=== PATIENT | female | born 1960 | race Caucasian/White ===

== ENCOUNTER 2016-11-28 16:59 | Inpatient (IN) | payer OTHER ==
[~2016-11-28] VITALS: Ht 170.2 cm; Wt 76.0 kg
[~2016-11-28 16:59] MED LIST: AMBIEN10 MG PO; CIPRO250 MG PO; CYM60 PO; DEP250 PO; LEVOTHYROXIN0.025 MG PO; LORAZEPAM1 MG PO; MIRTAZAPINE30 MG PO; PROPRANOLOL HCL40 MG PO; SERO100 PO; TRAZODONE100 M1 PO
[2016-11-28 18:47] LABS: BASOPHIL % 0.4 % (0-2); PLATELET COUNT 316 x10^3mcL (130-400); RED CELL DISTRIBUTION WIDTH 12.3 % (11.5-14.5)
[2016-11-28 18:53] LABS: CARBON DIOXIDE 29.2 mmol/L (21-32); CHLORIDE SERUM 106 mmol/L (98-107); CREATININE SERUM 0.7 mg/dL (0.6-1.0); GFR1 > 60 mL/min; GLUCOSE SERUM 95 mg/dL (74-106); POTASSIUM SERUM 4.1 mmol/L (3.5-5.1); SODIUM SERUM 142 mmol/L (136-145)
[2016-11-28 18:57] LABS: ALBUMIN 3.8 g/dL (3.4-5.0); ALKALINE PHOSPHATASE 57 U/L (46-116); ALT/SGPT 25 U/L (14-59); AST/SGOT 21 U/L (15-37); BILIRUBIN TOTAL 0.39 mg/dL (0.20-1.00); TOTAL PROTEIN, SERUM 6.8 g/dL (6.4-8.2)
[2016-11-28] MEDS ORDERED: CYMBALTA60 M1 PO (19:06)
[2016-11-28] MEDS ORDERED: NOR10T PO (19:07)
[2016-11-28] MEDS ORDERED: GABAPENTIN800 M1 PO (19:07)
[2016-11-28] MEDS ORDERED: SYNTHROID0.05 MG PO (19:09)
[2016-11-28 20:27] LABS: T3 TOTAL 1.43 ng/mL
[2016-11-28 20:29] LABS: CHOLESTEROL/HDL RATIO 2.6; MAGNESIUM 1.8 mg/dL (1.8-2.4)
[2016-11-28 20:34] VITALS: BP 152/93
[2016-11-28 20:39] LABS: FREE THYROXINE INDEX 2.3 ug/dL (1.4-4.5); T4(THYROXINE) 7.5 ug/dL (4.7-13.3)
[2016-11-28 20:41] LABS: FREE T4 0.83 ng/dL (0.76-1.46)
[2016-11-28 21:09] LABS: PHOSPHOROUS 4.4 mg/dL (2.5-4.9)
[2016-11-29 03:08] LABS: PLATELET COUNT 296 x10^3mcL (130-400)
[2016-11-29 03:10] LABS: BASOPHIL % 6.3 % (0-2); RED CELL DISTRIBUTION WIDTH 11.1 % (11.5-14.5)
[2016-11-29 03:14] LABS: CALCIUM 8.7 mg/dL (8.5-10.1); CARBON DIOXIDE 30.3 mmol/L (21-32); CHLORIDE SERUM 108 mmol/L (98-107); CREATININE SERUM 0.8 mg/dL (0.6-1.0); GFR1 > 60 mL/min; GLUCOSE SERUM 104 mg/dL (74-106); MAGNESIUM 1.9 mg/dL (1.8-2.4); PHOSPHOROUS 4.1 mg/dL (2.5-4.9); POTASSIUM SERUM 3.6 mmol/L (3.5-5.1); SODIUM SERUM 143 mmol/L (136-145)
[2016-11-29 03:39] LABS: UA SPECIFIC GRAVITY 1.015 (1.005-1.035); microscopic required? YES; urine erythrocyte NEGATIVE (NEGATIVE)
[2016-11-29 04:24] LABS: AMPHETAMINE QUAL UR NONE DETECTED (NEG <=1000)
[2016-11-29 06:01] VITALS: BP 124/73
[2016-11-29 09:29] VITALS: BP 128/68
[2016-11-29 15:12] VITALS: BP 105/65
[2016-11-29 17:33] VITALS: BP 124/71
[2016-11-29 20:38] VITALS: BP 146/77
[2016-11-30 05:45] VITALS: BP 129/75
[2016-11-30 06:48] LABS: BASOPHIL % 0.4 % (0-2); PLATELET COUNT 286 x10^3mcL (130-400); RED CELL DISTRIBUTION WIDTH 12.6 % (11.5-14.5)
[2016-11-30 07:18] LABS: CALCIUM 8.6 mg/dL (8.5-10.1)
[2016-11-30 07:45] LABS: CARBON DIOXIDE 29.5 mmol/L (21-32); CHLORIDE SERUM 107 mmol/L (98-107); CREATININE SERUM 0.7 mg/dL (0.6-1.0); GFR1 > 60 mL/min; GLUCOSE SERUM 93 mg/dL (74-106); POTASSIUM SERUM 4.5 mmol/L (3.5-5.1); SODIUM SERUM 143 mmol/L (136-145)
[2016-11-30 09:25] VITALS: BP 127/77
[2016-11-30] MEDS ORDERED: LAC PO (10:57)
[2016-11-30] MEDS ORDERED: CIPRO250 MG PO (10:57)
[2016-11-30 11:06] VITALS: BP 127/77
== END 2016-11-30 13:18 | disposition home or self-care (01) | DRG 392 ==
LOC: ED 16:59 → DU 19:12
PROVIDERS: Emergency Medicine; ADMIT Family Medicine
DX: K21.9 Gastro-esophageal reflux disease without esophagitis (principal); R45.851 Suicidal ideations; F33.2 Major depressive disorder, recurrent severe without psychotic features; E03.9 Hypothyroidism, unspecified; M25.511 Pain in right shoulder; I16.0 Hypertensive urgency; E78.5 Hyperlipidemia, unspecified; F41.9 Anxiety disorder, unspecified; G57.62 Lesion of plantar nerve, left lower limb; Z68.26 Body mass index [BMI] 26.0-26.9, adult; F17.210 Nicotine dependence, cigarettes, uncomplicated
CPT/HCPCS: 80307; 83880; 84439; G0480; J0696; J2060; J2270; J7030; Q0092

== ENCOUNTER 2018-06-01 12:14 | Emergency (ER) | payer OTHER ==
[~2018-06-01] VITALS: Ht 170.2 cm; Wt 82.7 kg
[~2018-06-01 12:14] MED LIST changes: +CYMBALTA60 M1 PO; +GABAPENTIN800 M1 PO; +LAC PO; +NOR10T PO; +SYNTHROID0.05 MG PO
[2018-06-01 12:20] VITALS: BP 148/90; Ht 170.2 cm; Wt 82.7 kg
== END 2018-06-01 14:33 | disposition home or self-care (01) ==
LOC: ED 12:14
DX: S61.411A Laceration without foreign body of right hand, initial encounter (principal); F31.9 Bipolar disorder, unspecified; Z98.890 Other specified postprocedural states; W25.XXXA Contact with sharp glass, initial encounter; Y93.89 Activity, other specified; Y92.090 Kitchen in other non-institutional residence as the place of occurrence of the external cause; Y99.8 Other external cause status
CPT/HCPCS: 90715; J2001

== ENCOUNTER 2018-06-12 21:30 | Emergency (ER) | payer OTHER ==
[~2018-06-12] VITALS: Ht 170.2 cm; Wt 85.7 kg
[2018-06-12 21:36] VITALS: Ht 170.2 cm; Wt 85.7 kg
[2018-06-12 22:26] VITALS: BP 115/76
== END 2018-06-12 21:52 | disposition home or self-care (01) ==
LOC: ED 21:30
DX: S61.411D Laceration without foreign body of right hand, subsequent encounter (principal); F31.9 Bipolar disorder, unspecified; X58.XXXD Exposure to other specified factors, subsequent encounter

== ENCOUNTER 2019-01-18 07:36 | Day surgery (SDC) | payer OTHER ==
[~2019-01-18] VITALS: Ht 170.2 cm; Wt 72.6 kg
[2019-01-18 08:23] VITALS: BP 123/84
[2019-01-18 15:17] VITALS: BP 114/75
== END 2019-01-18 11:20 | disposition home or self-care (01) ==
LOC: GI 07:36 → OR 10:00 → GI 10:00
DX: K52.9 Noninfective gastroenteritis and colitis, unspecified (principal); K64.8 Other hemorrhoids; E03.9 Hypothyroidism, unspecified; F41.9 Anxiety disorder, unspecified; F32.9 Major depressive disorder, single episode, unspecified; Z79.899 Other long term (current) drug therapy; Z98.890 Other specified postprocedural states
CPT/HCPCS: 45378; J1200; J1610; J2250; J2310; J3010; J3490

== ENCOUNTER 2019-11-06 20:54 | Emergency (ER) | payer OTHER ==
[~2019-11-06] VITALS: Ht 170.2 cm; Wt 76.2 kg
[2019-11-06 22:04] LABS: BASOPHIL % 0.3 % (0-2); PLATELET COUNT 325 x10^3mcL (130-400); RED CELL DISTRIBUTION WIDTH 12.5 % (11.5-14.5)
[2019-11-06 22:30] LABS: CALCIUM 9.1 mg/dL (8.5-10.1); CARBON DIOXIDE 28.8 mmol/L (21-32); CHLORIDE SERUM 104 mmol/L (98-107); CREATININE SERUM 0.8 mg/dL (0.6-1.0); GFR1 > 60 mL/min; GLUCOSE SERUM 101 mg/dL (74-106); SODIUM SERUM 141 mmol/L (136-145)
[2019-11-06 22:35] LABS: ALKALINE PHOSPHATASE 45 U/L (46-116); ALT/SGPT 32 U/L (14-59); AMYLASE 73 U/L (25-115); AST/SGOT 23 U/L (15-37); BILIRUBIN TOTAL 0.3 mg/dL (0.20-1.00); LIPASE 162 IU/L (73-393); TOTAL PROTEIN, SERUM 6.2 g/dL (6.4-8.2)
[2019-11-06 22:41] LABS: ALBUMIN 3.2 g/dL (3.4-5.0)
[2019-11-06 23:58] VITALS: BP 113/71
== END 2019-11-06 23:59 | disposition home or self-care (01) ==
LOC: ED 20:54
PROVIDERS: Emergency Medicine
DX: K52.9 Noninfective gastroenteritis and colitis, unspecified (principal); Z98.890 Other specified postprocedural states
CPT/HCPCS: 87046; 87046-59; J7030

== ENCOUNTER 2019-11-28 22:38 | Emergency (ER) | payer OTHER ==
[~2019-11-28] VITALS: Ht 170.2 cm; Wt 75.3 kg
[2019-11-28 22:46] VITALS: Ht 170.2 cm; Wt 75.3 kg
[2019-11-29 02:26] VITALS: BP 119/78
== END 2019-11-29 02:26 | disposition home or self-care (01) ==
LOC: ED 22:38
DX: S61.511A Laceration without foreign body of right wrist, initial encounter (principal); E03.9 Hypothyroidism, unspecified; Z98.890 Other specified postprocedural states; W45.8XXA Other foreign body or object entering through skin, initial encounter; Y93.89 Activity, other specified; Y92.89 Other specified places as the place of occurrence of the external cause; Y99.8 Other external cause status